=== PATIENT | female | born 2000 | race Caucasian/White ===

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

== ENCOUNTER 2020-01-31 00:08 | Emergency (ER) | payer BC ==
[~2020-01-31] VITALS: Ht 172.7 cm; Wt 88.6 kg
[2020-01-31] MEDS ORDERED: acetaminophen 325mg tablet PO ONE (00:30)
[2020-01-31 00:54] VITALS: BP 131/74
== END 2020-01-31 00:55 | disposition home or self-care (01) ==
LOC: ER 00:08
DX: S06.0X9A Concussion with loss of consciousness of unspecified duration, initial encounter (principal); W18.30XA Fall on same level, unspecified, initial encounter; Y93.89 Activity, other specified; Y92.89 Other specified places as the place of occurrence of the external cause; Y99.8 Other external cause status
CPT/HCPCS: 99284